=== PATIENT | male | born 1980 | race Two or more races ===

== ENCOUNTER 2018-04-14 13:12 | Inpatient (IN) | payer MEDICAID ==
[2018-04-14] VITALS (9 sets, daily range): BP systolic 121–153; BP diastolic 62–78
[~2018-04-14] VITALS: Ht 182.9 cm; Wt 90.7 kg
[~2018-04-14 13:12] MED LIST: Sterile Water Irrig 1000ml IRRIG ONE
--- NOTE | 2018-04-14 14:29 | Emergency Room Report ---
History of Present Illness General Chief Complaint: Abdominal Pain Source: Patient (Batool Alva) Source: Patient (RYLAN SARABIA M.D) Present Illness HPI 37-year-old male with no medical problems and remote history of a left lung surgery as a child, presents with constant severe right lower quadrant pain that started at 6 AM today, with associated nausea and vomiting, denies any testicular genital pain, denies urinary symptoms, denies any diarrhea or rectal bleeding, reports the pain is severe, not constant and nonradiating with no obvious exacerbating or alleviating factors other than pain worsens with palpation and movement. Denies fevers, denies shortness of breath, denies any obvious triggers to this pain. (RYLAN SARABIA M.D) Allergies: Coded Allergies: No Known Allergies (Unverified , 04/14/18) Patient History Past Medical History: see triage record Reviewed Nursing Documentation: PMH: Agreed; PSxH: Agreed (RYLAN SARABIA M.D) Nursing Documentation-PMH Hx Hypertension: Yes (Batool Alva) Review of Systems All Other Systems: negative except mentioned in HPI (RYLAN SARABIA M.D) Physical Exam Vital Signs Date Time Temp Pulse Resp B/P (MAP) Pulse Ox O2 Delivery O2 Flow Rate FiO2 04/14/18 13:27 97.8 62 18 122/75 95 Room Air 97.9 (Batool Alva) Sp02 EP Interpretation: reviewed, normal General Appearance: no apparent distress, alert, non-toxic Head: normocephalic Eyes: bilateral eye normal inspection, bilateral eye PERRL, bilateral eye EOMI ENT: normal ENT inspection, hearing grossly normal, normal pharynx, no angioedema, normal voice, moist mucus membranes Neck: normal inspection, full range of motion, supple, supple/symm/no masses Respiratory: chest non-tender, lungs clear, normal breath sounds, chest symmetrical, palpation of chest normal Cardiovascular #1: normal peripheral pulses, regular rate, rhythm Cardiovascular #2: 2+ radial (R), 2+ radial (L) Gastrointestinal: normal inspection, soft, no mass, no guarding, no rebound, tenderness - Positive McBurney's point tenderness with localized guarding but no rebound tenderness, and no peritoneal signs otherwise Rectal: deferred Genitourinary: no CVA tenderness Musculoskeletal: back normal, gait/station normal, normal range of motion, non- tender, no calf tenderness Neurologic: alert, responsive, system dispatcher III-XII nml as tested, motor strength/tone normal, sensory intact, speech normal Psychiatric: judgement/insight normal, memory normal, mood/affect normal, no suicidal/homicidal ideation Skin: normal color, no rash, warm/dry, normal turgor Lymphatic: no adenopathy (RYLAN SARABIA M.D) Medical Decision Making Diagnostic Impression: Primary Impression: Appendicitis, acute ER Course Patient with leukocytosis, right lower quadrant tenderness over McBurney's point , pending CT scan at the time of this dictation, presentation very concerning for acute appendicitis, we will initiate antibiotics, patient has been nothing by mouth since 4 AM, he's been given IV fluids, IV antibiotics, and preop labs obtained. Patient also informed that he likely has appendicitis prior to CT scan results. Will admit to Dr. Mireles for admission and Dr. Nieto for OR intervention. (RYLAN SARABIA M.D) CT/MRI/US Diagnostic Results CT/MRI/US Diagnostic Results : Imaging Test Ordered: CT abdomen and pelvis with IV contrast (RYLAN SARABIA M.D) Last Vital Signs Date Time Temp Pulse Resp B/P (MAP) Pulse Ox O2 Delivery O2 Flow Rate FiO2 04/14/18 13:27 97.8 62 18 122/75 95 Room Air 97.9 (Batool Alva) Disposition: ADMITTED INPATIENT Condition: Serious Signed Out To: Dr. Nieto, Dr. Mireles to admit (RYLAN SARABIA M.D) Scripts No Active Prescriptions or Reported Meds Batool Alva Apr 14, 2018 14:29 RYLAN SARABIA M.D Apr 14, 2018 15:23
[2018-04-14] MEDS ORDERED: Morphine Sulfate 4mg/ml Inj IVP ONE (14:30)
[2018-04-14] MEDS ORDERED: Mylanta II UD 30ml ORAL ONE (14:30)
[2018-04-14] MEDS ORDERED: Lidocaine 2% Visc 15ml soln ORAL ONE (14:30)
[2018-04-14] MEDS ORDERED: Isovue-300 100ml vial INJ PRN (14:30)
[2018-04-14 14:39] LABS: HEMATOCRIT 53.9 % (42.0-52.0); HEMOGLOBIN 17.9 G/DL (14.2-18.0); MEAN CORPUSCULAR VOLUME 94 FL (80-99); PLATELET COUNT 260 K/UL (150-450); RED BLOOD COUNT 5.74 M/UL (4.70-6.10); RED CELL DISTRIBUTION WIDTH 12.4 % (11.6-14.8); WHITE BLOOD COUNT 16.4 K/UL (4.8-10.8)
[2018-04-14 14:43] LABS: ANION GAP 8 mmol/L (5-15); BLOOD UREA NITROGEN 13 mg/dL (7-18); CARBON DIOXIDE 26 MMOL/L (21-32); CHLORIDE 107 MMOL/L (98-107); CREATININE 0.9 MG/DL (0.55-1.30); SODIUM 141 MMOL/L (136-145)
[2018-04-14 14:48] LABS: ALANINE AMINOTRANSFERASE 33 U/L (12-78); ALBUMIN 3.8 G/DL (3.4-5.0); ALKALINE PHOSPHATASE 118 U/L (46-116); ASPARTATE AMINO TRANSFERASE 17 U/L (15-37); BILIRUBIN,TOTAL 0.6 MG/DL (0.2-1.0)
[2018-04-14 15:36] LABS: APPEARANCE,URINE CLEAR; BILIRUBIN, URINE NEGATIVE (NEGATIVE); GLUCOSE, URINE (UA) NEGATIVE (NEGATIVE); KETONES,URINE 1+ (NEGATIVE); LEUKOCYTE ESTERASE ,URINE NEGATIVE (NEGATIVE); NITRITE,URINE NEGATIVE (NEGATIVE); PH,URINE 8 (4.5-8.0); PROTEIN,URINE NEGATIVE (NEGATIVE); UROBILINOGEN,URINE NORMAL MG/DL (0.0-1.0)
[2018-04-14 15:42] LABS: COLOR,URINE YELLOW
--- NOTE | 2018-04-14 17:04 | Consultation ---
History of Present Illness General Date patient seen: Apr 14, 2018 Chief Complaint: Abdominal Pain Reason for Consultation: acute appendicitis Present Illness HPI 37M presented with acute onset abdominal pain x 1 day. pain RLQ. associated with n/v. no fever or chills. came to ED for evaluation. +flatus and BM. last meal this AM. Allergies: Coded Allergies: No Known Allergies (Unverified , 04/14/18) Medication History No Active Prescriptions or Reported Meds Patient History History Provided By: Patient, Family Member, Medical Record, PMD Healthcare decision maker Resuscitation status Advanced Directive on File Past Medical/Surgical History Past Medical/Surgical History: (1) Appendicitis, acute Review of Systems All Other Systems: negative except mentioned in HPI Physical Exam General Appearance: no apparent distress Lines, tubes and drains: peripheral HEENT: normocephalic Neck: normal inspection Respiratory/Chest: normal breath sounds Cardiovascular/Chest: normal peripheral pulses Abdomen: soft, guarding, rebound, tender Extremities: normal range of motion Skin Exam: normal pigmentation Neurologic: alert Last 24 Hour Vital Signs Date Time Temp Pulse Resp B/P (MAP) Pulse Ox O2 Delivery O2 Flow Rate FiO2 04/14/18 14:43 97.9 04/14/18 13:37 97.9 84 18 122/75 97 Room Air 97.9 04/14/18 13:27 97.8 62 18 122/75 95 Room Air 97.9 Laboratory Tests Test 04/14/18 13:59 04/14/18 14:10 04/14/18 14:50 Sodium Level 141 MMOL/L (136-145) Potassium Level 4.0 MMOL/L (3.5-5.1) Chloride Level 107 MMOL/L (98-107) Carbon Dioxide Level 26 MMOL/L (21-32) Anion Gap 8 mmol/L (5-15) Blood Urea Nitrogen 13 mg/dL (7-18) Creatinine 0.9 MG/DL (0.55-1.30) Estimat Glomerular Filtration Rate > 60 mL/min (>60) Glucose Level 135 MG/DL (74-106) H Calcium Level 9.0 MG/DL (8.5-10.1) Total Bilirubin 0.6 MG/DL (0.2-1.0) Aspartate Amino Transf (AST/SGOT) 17 U/L (15-37) Alanine Aminotransferase (ALT/SGPT) 33 U/L (12-78) Alkaline Phosphatase 118 U/L (46-116) H Total Protein 7.7 G/DL (6.4-8.2) Albumin 3.8 G/DL (3.4-5.0) Globulin 3.9 g/dL Albumin/Globulin Ratio 1.0 (1.0-2.7) Lipase 127 U/L (73-393) Serum Alcohol < 3 mg/dL White Blood Count 16.4 K/UL (4.8-10.8) H Red Blood Count 5.74 M/UL (4.70-6.10) Hemoglobin 17.9 G/DL (14.2-18.0) Hematocrit 53.9 % (42.0-52.0) H Mean Corpuscular Volume 94 FL (80-99) Mean Corpuscular Hemoglobin 31.3 PG (27.0-31.0) H Mean Corpuscular Hemoglobin Concent 33.3 G/DL (32.0-36.0) Red Cell Distribution Width 12.4 % (11.6-14.8) Platelet Count 260 K/UL (150-450) Mean Platelet Volume 5.7 FL (6.5-10.1) L Neutrophils (%) (Auto) % (45.0-75.0) Lymphocytes (%) (Auto) % (20.0-45.0) Monocytes (%) (Auto) % (1.0-10.0) Eosinophils (%) (Auto) % (0.0-3.0) Basophils (%) (Auto) % (0.0-2.0) Differential Total Cells Counted 100 Neutrophils % (Manual) 82 % (45-75) H Lymphocytes % (Manual) 9 % (20-45) L Monocytes % (Manual) 5 % (1-10) Eosinophils % (Manual) 0 % (0-3) Basophils % (Manual) 0 % (0-2) Band Neutrophils 4 % (0-8) Platelet Estimate Adequate Platelet Morphology Normal Red Blood Cell Morphology Normal Urine Color Yellow Urine Appearance Clear Urine pH 8 (4.5-8.0) Urine Specific [place] 1.015 (1.005-1.035) Urine Protein Negative (NEGATIVE) Urine Glucose (UA) Negative (NEGATIVE) Urine Ketones 1+ (NEGATIVE) H Urine Occult Blood 2+ (NEGATIVE) H Urine Nitrite Negative (NEGATIVE) Urine Bilirubin Negative (NEGATIVE) Urine Urobilinogen Normal MG/DL (0.0-1.0) Urine Leukocyte Esterase Negative (NEGATIVE) Urine RBC 2-4 /HPF (0 - 0) H Urine WBC 0-2 /HPF (0 - 0) Urine Squamous Epithelial Cells None /LPF (NONE/OCC) Urine Bacteria Few /HPF (NONE) Height (Feet): 6 Height (Inches): 0.00 Weight (Pounds): 200 Medications Current Medications Medications (Trade) Dose Ordered Sig/Maximilian Route PRN Reason Start Time Stop Time Status Last Admin Dose Admin Iopamidol (Isovue-300 100ml) 100 ml NOW PRN INJ Radiology Procedure 04/14/18 14:30 Assessment/Plan Problem List: (1) Appendicitis, acute Assessment & Plan: 37M acute appendicitis. afebrile, HD stable, leukocytosis, CT with dilated inflamed appendix no perf. -to OR for lap appy npo iv fluids abx. consent ICD Codes: K35.80 - Unspecified acute appendicitis SNOMED: [id number] Status: stable Joey Nieto Apr 14, 2018 17:04
[2018-04-14] MEDS ORDERED: Midazolam 2mg/2ml Inj ONE (17:05)
[2018-04-14] MEDS ORDERED: fentaNYL 100 mcg/2 mL IV ONE (17:05)
[2018-04-14] MEDS ORDERED: Lidocaine 1% MPF 10mg/ml 5ml ONE (17:07)
[2018-04-14] MEDS ORDERED: Propofol 200mg/20ml IV ONE (17:07)
[2018-04-14] MEDS ORDERED: Morphine Sulfate 10mg/ml Inj ONE (17:07)
[2018-04-14] MEDS ORDERED: Sodium Chloride 10ml vial INJ ONE (17:07)
--- NOTE | 2018-04-14 17:07 | Pre-Procedure Note/Attestation ---
Pre-Procedure Note/Attestation Complete Prior to Procedure Planned Procedure: not applicable Procedure Narrative: lap appy Indications for Procedure Pre-Operative Diagnosis: appendicitis Attestation I attest that I discussed the nature of the procedure; its benefits; risks and complications; and alternatives (and the risks and benefits of such alternatives ), prior to the procedure, with the patient (or the patient's legal account manager sales representative). I attest that, if there was a reasonable possibility of needing a blood transfusion, the patient (or the patient's legal account manager sales representative) was given the [facility] standardized written summary, pursuant to the [place] Blood Safety Act ([place] Health and Safety Code # 1645, as amended). I attest that I re-evaluated the patient just prior to the surgery and that there has been no change in the patient's H&P, except as documented below: Joey Nieto Apr 14, 2018 17:07
--- NOTE | 2018-04-14 17:11 | Diagnostic Imaging Report ---
Clinical Indication: Right lower quadrant pain and nausea Technique: No oral contrast utilized, per emergency room physician request IV administration nonionic contrast. Venous phase spiral acquisition 9 6 obtained through the abdomen and pelvis. Multiplanar reconstructions were generated. Total dose length product 971.09 mGycm. CTDIvol(s) 18.16 mGy. Dose reduction achieved using automated exposure control Comparison: none Findings: The appendix is mildly dilated and there is slight infiltration of the periappendiceal fat. No periappendiceal gas or fluid collections are demonstrated. There are occasional colonic diverticula. No evidence of diverticulitis. No small bowel distention or small bowel wall thickening. No free or loculated intraperitoneal air or fluid. The distal esophagus, stomach, duodenum are unremarkable. The liver, gallbladder, bile ducts, pancreas, spleen, adrenals, kidneys are all unremarkable. No there are somewhat prominent retroperitoneal and right lower quadrant mesenteric root nodes, but no allison adenopathy. No pelvic mass or adenopathy. The included lung bases demonstrate minimal atelectatic changes of the lingula. The bones are unremarkable Impression: Positive for uncomplicated acute appendicitis Colonic diverticulosis. No evidence of diverticulitis Findings reviewed in person previously with Dr. Nieto The CT scanner at [facility] is accredited by the [employer] and the scans are performed using protocols designed to limit radiation exposure to as low as reasonably achievable to attain images of sufficient resolution adequate for diagnostic evaluation.
[2018-04-14] MEDS ORDERED: Zemuron 50mg/5ml Inj IV ONE (17:14)
[2018-04-14] MEDS ORDERED: Bupivacaine 0.25% Inj 30ml INJ ONE (17:24)
[2018-04-14] MEDS ORDERED: EPINEPHrine 1mg/1ml Amp ONE (17:24)
[2018-04-14] MEDS ORDERED: NS Irrig 1000ml IRRIG ONE (17:50)
[2018-04-14] MEDS ORDERED: LR 1000ml 1,000 ML IVLG SCH (17:54)
--- NOTE | 2018-04-14 17:59 | Anethesia Preoperative Eval ---
Anesthesia Pre-op PMH/ROS General Date of Evaluation: Apr 14, 2018 Time of Evaluation: 17:20 Anesthesiologist: Parmjit ASA Score: ASA 2 Mallampati Score Class I : Soft palate, uvula, fauces, pillars visible Class II: Soft palate, uvula, fauces visible Class III: Soft palate, base of uvula visible Class IV: Only hard plate visible Mallampati Classification: Class II Surgeon: Emilia Diagnosis: Aacute appendicitis Surgical Procedure: Lap appy Family History: no anesthesia problems Allergies: Coded Allergies: No Known Allergies (Unverified , 04/14/18) Medications: see eMAR Past Medical History Cardiovascular: Reports: HTN; Denies: CAD, MO, valve dz, arrhythmia, other Pulmonary: Denies: asthma, COPD, LONG, other Gastrointestinal/Genitourinary: Denies: GERD, CRI, ESRD, other Neurologic/Psychiatric: Denies: dementia, CVA, depression/anxiety, TIA, other Endocrine: Denies: DM, hypothyroidism, steroids, other HEENT: Denies: cataract (L), cataract (R), glaucoma, [place] (L), [place] (R), other Hematology/Immune: Denies: anemia, DVT, bleeding disorder, other Musculoskeletal/Integumentary: Denies: OA, RA, DJD, DDD, edema, other PMH Narrative: HTN (untreated) PSxH Narrative: Lung (secondary to trauma in [facility]) Anesthesia Pre-op Phys. Exam Physician Exam Last Vital Signs Date Time Temp Pulse Resp B/P (MAP) Pulse Ox O2 Delivery O2 Flow Rate FiO2 04/14/18 14:43 97.9 04/14/18 13:37 84 18 122/75 97 Room Air Constitutional: NAD Neurologic: CN 2-12 intact Cardiovascular: RRR, no M/R/G Gastrointestinal: S/NT/ND Airway Exam Mallampati Score: Class II MO: full ROM: full Teeth: intact Anesthesia Pre-op A/P Labs Hematology Test 04/14/18 14:10 White Blood Count 16.4 K/UL (4.8-10.8) H Red Blood Count 5.74 M/UL (4.70-6.10) Hemoglobin 17.9 G/DL (14.2-18.0) Hematocrit 53.9 % (42.0-52.0) H Mean Corpuscular Volume 94 FL (80-99) Mean Corpuscular Hemoglobin 31.3 PG (27.0-31.0) H Mean Corpuscular Hemoglobin Concent 33.3 G/DL (32.0-36.0) Red Cell Distribution Width 12.4 % (11.6-14.8) Platelet Count 260 K/UL (150-450) Mean Platelet Volume 5.7 FL (6.5-10.1) L Neutrophils (%) (Auto) % (45.0-75.0) Lymphocytes (%) (Auto) % (20.0-45.0) Monocytes (%) (Auto) % (1.0-10.0) Eosinophils (%) (Auto) % (0.0-3.0) Basophils (%) (Auto) % (0.0-2.0) Differential Total Cells Counted 100 Neutrophils % (Manual) 82 % (45-75) H Lymphocytes % (Manual) 9 % (20-45) L Monocytes % (Manual) 5 % (1-10) Eosinophils % (Manual) 0 % (0-3) Basophils % (Manual) 0 % (0-2) Band Neutrophils 4 % (0-8) Platelet Estimate Adequate Platelet Morphology Normal Red Blood Cell Morphology Normal Chemistry Test 04/14/18 13:59 Sodium Level 141 MMOL/L (136-145) Potassium Level 4.0 MMOL/L (3.5-5.1) Chloride Level 107 MMOL/L (98-107) Carbon Dioxide Level 26 MMOL/L (21-32) Anion Gap 8 mmol/L (5-15) Blood Urea Nitrogen 13 mg/dL (7-18) Creatinine 0.9 MG/DL (0.55-1.30) Estimat Glomerular Filtration Rate > 60 mL/min (>60) Glucose Level 135 MG/DL (74-106) H Calcium Level 9.0 MG/DL (8.5-10.1) Total Bilirubin 0.6 MG/DL (0.2-1.0) Aspartate Amino Transf (AST/SGOT) 17 U/L (15-37) Alanine Aminotransferase (ALT/SGPT) 33 U/L (12-78) Alkaline Phosphatase 118 U/L (46-116) H Total Protein 7.7 G/DL (6.4-8.2) Albumin 3.8 G/DL (3.4-5.0) Globulin 3.9 g/dL Albumin/Globulin Ratio 1.0 (1.0-2.7) Lipase 127 U/L (73-393) Risk Assessment & Plan Assessment: Untreated hypertensive male for lap appy. Plan: GETA Status Change Before Surgery: No Pre-Antibiotics Drug: Ancef Given Within 1 Hr of Incision: Yes Time Given: 17:40 Wesley Parnell MD Apr 14, 2018 17:59
[2018-04-14] MEDS ORDERED: fentaNYL 100 mcg/2 mL IV PRN (18:00)
[2018-04-14] MEDS ORDERED: LORazepam Inj 2mg/ml 1ml IV PRN (18:00)
[2018-04-14] MEDS ORDERED: Meperidine 50mg/ml Inj(FOR RIGORS ONLY) IVP PRN (18:00)
[2018-04-14] MEDS ORDERED: DiphenhydrAMINE 50mg/ml Inj IVP PRN (18:00)
--- NOTE | 2018-04-14 18:00 | Immediate Post-Op Evaluation ---
Immediate Post-Op Evalulation Immediate Post-Op Evalulation Procedure: Lap appy Date of Evaluation: Apr 14, 2018 Time of Evaluation: 18:25 IV Fluids: 600 Blood Pressure Systolic: 153 Blood Pressure Diastolic: 72 Pulse Rate: 72 Respiratory Rate: 12 O2 Sat by Pulse Oximetry: 100 Temperature (Fahrenheit): 98.6 Pain Score (1-10): 0 Nausea: No Vomiting: No Complications No complication Patient Status: awake, patent, extubated, none Hydration Status: adequate Drug: Ancef Given Within 1 Hr of Incision: Yes Time Given: 17:40 Wesley Parnell MD Apr 14, 2018 18:00
--- NOTE | 2018-04-14 18:19 | Brief Operative Note ---
Immediate Post Operative Note Operative Note Pre-op Diagnosis: appendicitis Procedure: laparoscopic appendectomy Post-op Diagnosis: same as pre-op Surgeon: yln Anesthesiologist: shayy Anesthesia: general Specimen: yes Complications: none Condition: stable Fluids: see records Estimated Blood Loss: minimal Drains: none Implant(s) used?: No Joey Nieto Apr 14, 2018 18:18
[2018-04-14] MEDS ORDERED: Ketorolac 30mg Inj IV PRN (18:30)
[2018-04-14] MEDS ORDERED: Norco 5mg/325mg tab ORAL PRN (18:30)
[2018-04-14] MEDS ORDERED: Milk of Magnesia 30ml Ud ORAL PRN (18:30)
[2018-04-14] MEDS ORDERED: Morphine Sulfate 4mg/ml Inj IVP PRN ×2 (18:30→20:30)
--- NOTE | 2018-04-14 19:45 | Operative Note - Dictated ---
DATE OF OPERATION: 04/14/2018 PREOPERATIVE DIAGNOSIS: Acute appendicitis. POSTOPERATIVE DIAGNOSIS: Acute appendicitis. OPERATION PERFORMED: Acute laparoscopic appendectomy. ATTENDING SURGEON: Joey Nieto M.D. RAIL DIRECTOR: None. ANESTHESIOLOGIST: Wesley Parnell M.D. ANESTHESIA: General TRAINING AND QUALITY MANAGER. ESTIMATED BLOOD LOSS: Minimal. IV FLUIDS: Please see anesthesia records. COMPLICATIONS: None. SPECIMEN: Appendix. DRAINS: None. COUNTS: Sponge and needle count correct x2. WOUND CLASSIFICATION: Class III. INDICATIONS FOR PROCEDURE: This is a 37-year-old male, who presented to emergency department complaining of worsening right lower quadrant abdominal pain x1 day with acute onset. The patient had a leukocytosis and CT scan consistent with acute non-perforated uncomplicated appendicitis. On examination, the patient had focal right lower quadrant tenderness with rebound and guarding. Surgery was indicated and recommended. Risks, benefits, and alternatives were discussed with the patient in detail. Consented for surgery. OPERATIVE NOTE: The patient was taken to the operating room and placed on operative table in supine position with bilateral arms out. All bony prominences were well padded. SCDs were placed. Antibiotics were given one hour prior to cut time. Preoperative time-out was taken identifying the patient, procedure, operative staff, and surgical staff. General anesthesia was induced and the patient was intubated. The abdomen was clipped, prepped, and draped in standard surgical fashion. An infraumbilical incision was made in the skin using a fresh #11 scalpel, which was taken down to the fascia, which was elevated and incised. Entry into the abdomen was identified using open Neisha technique without complication. A 12 mm Neisha trocar was then inserted and the abdomen was insufflated to 12 to 15 mmHg. The patient tolerated the insufflation well. Secondary trocars were then placed under direct visualization beginning with a 12 mm trocar in the left lower quadrant followed by a 5 mm suprapubic trocar. Both were inserted without complication. Local anesthetic was used in all skin incisions and port entry sites throughout the procedure. Laparoscopic graspers were used to identify the cecum and the teniae in the colon down to the confluence, at which point the base of the appendix was identified. The appendix was very dilated and distended with periappendiceal fat stranding, but no perforation or other abnormalities. A window was made at the base of the appendix. Following this, a laparoscopic linear stapler was used to divide the base of the appendix without complication. Following this, the laparoscopic linear stapler was then used to divide the mesoappendix in a similar fashion. The appendix was placed in endoscopic retrieval bag and removed from the abdomen. The base of the appendix staple line and the mesentery staple line were identified and noted to be hemostatic and secured. Minimal irrigation was then done in the right lower quadrant and suction. At this time, secondary trocars were removed under direct visualization. The appendix was removed using the umbilical port site, and abdomen was allowed to desufflate. The fascial incisions were closed using #0 Vicryl [id number] suture. Following this, skin incisions were closed using 4-0 Monocryl subcuticular sutures. Mastisol and Steri-Strips followed by dressings were applied. The patient tolerated the procedure well, was extubated, and taken to postanesthetic care unit in stable condition. Joey Nieto M.D. DR: JASON JOB#: [id number] CC:
[2018-04-14] MEDS: D5 1/2NS w/KCl 20mEq 1,000 ML IV SCH (21:51)
[2018-04-14] MEDS: Ampicillin/Sulbactam Sod 3 GM in NS 110 ML IVPB SCH (21:51)
[2018-04-15] MEDS: HYDROcodone/Acetamin 10/325 tab ORAL PRN ×4 (00:05→12:20)
[2018-04-15] MEDS: Ampicillin/Sulbactam Sod 3 GM in NS 110 ML IVPB SCH (06:23)
[2018-04-15] MEDS: D5 1/2NS w/KCl 20mEq 1,000 ML IV SCH (06:26)
[2018-04-15 06:44] LABS: BASOPHILS % (AUTO) 0.7 % (0.0-2.0); HEMATOCRIT 44.3 % (42.0-52.0); HEMOGLOBIN 15.8 G/DL (14.2-18.0); LYMPHOCYTES % (AUTO) 17.3 % (20.0-45.0); MEAN CORPUSCULAR VOLUME 93 FL (80-99); MONOCYTES % (AUTO) 6.8 % (1.0-10.0); NEUTROPHILS % (AUTO) 74.2 % (45.0-75.0); PLATELET COUNT 202 K/UL (150-450); RED BLOOD COUNT 4.77 M/UL (4.70-6.10); RED CELL DISTRIBUTION WIDTH 12.2 % (11.6-14.8); WHITE BLOOD COUNT 13.3 K/UL (4.8-10.8)
[2018-04-15 08:00] LABS: ANION GAP 4 mmol/L (5-15); BLOOD UREA NITROGEN 12 mg/dL (7-18); CALCIUM 8.3 MG/DL (8.5-10.1); CARBON DIOXIDE 28 MMOL/L (21-32); CHLORIDE 105 MMOL/L (98-107); CREATININE 0.8 MG/DL (0.55-1.30); SODIUM 137 MMOL/L (136-145)
[2018-04-15 08:05] VITALS: BP 100/67
[2018-04-15 08:24] VITALS: BP 100/67
--- NOTE | 2018-04-15 08:24 | 48 Hour Post Anesthesia Eval ---
Post Anesthesia Evaluation Procedure: Lap appy Date of Evaluation: Apr 15, 2018 Time of Evaluation: 10:15 Blood Pressure Systolic: 100 0: 67 Pulse Rate: 77 Respiratory Rate: 20 Temperature (Fahrenheit): 97.9 O2 Sat by Pulse Oximetry: 97 Airway: patent Nausea: No Vomiting: No Pain Intensity: 3 Hydration Status: adequate Cardiopulmonary Status: Stable Mental Status/LOC: patient returned to baseline Follow-up Care/Observations: As per surgery Post-Anesthesia Complications: No anesthetic complication Follow-up care needed: N/A Wesley Parnell MD Apr 15, 2018 08:24
[2018-04-15] MEDS ORDERED: Docusate 100mg cap ORAL SCH (09:00)
[2018-04-15] MEDS ORDERED: NORCO 5-325 TA1 EACH ORAL (12:07)
[2018-04-15] MEDS ORDERED: COLACE100 MG ORAL (12:07)
--- NOTE | 2018-04-15 12:21 | General Progress Note ---
Progress Note Progress Note Surgery: doing well. no acute events. pain improved now just incisional pain. no n/v/f/ c. tolerating diet. ambulatory. afebrile, HD stable, labs improved. leukocytosis resolving. POD #1 s/p lap appy for acute appendicitis. stable. recovering -diet as tolerated -activity as tolerated -Rx writte -okay to d/c -follow up in 1-2 weeks -post op instructions given to patient. Joey Nieto Apr 15, 2018 12:21
[2018-04-15] MEDS ORDERED: Ampicillin/Sulbactam Sod 3 GM in D5W 110 ML IVPB SCH (14:00)
--- NOTE | 2018-04-15 16:30 | Consultation ---
DATE OF CONSULTATION: 04/15/2018 INFECTIOUS DISEASE CONSULTATION CONSULTING PHYSICIAN: Jian Arndt M.D. REQUESTING PHYSICIAN: Villa Mireles M.D. PRIMARY ATTENDING PHYSICIAN: Joey Nieto M.D. REASON FOR CONSULT: Acute appendicitis. HISTORY OF PRESENT ILLNESS: The patient is a 37-year-old male, admitted yesterday with 1-day history of right lower quadrant abdominal pain. The patient did not have any other symptoms, have leukocytosis at the time of admission. CT scan of the abdomen and pelvis showed acute appendicitis. Started IV antibiotic Unasyn and went to OR and had laparoscopic appendectomy. ALLERGIES: No known drug allergies. MEDICATIONS: Getting Unasyn, Colace, temazepam, morphine, Toradol, Tylenol, [place], Zofran, magnesium hydroxide, Mylanta and diphenhydramine. SOCIAL HISTORY: Originally from [facility]. Lives in [facility] for one and half years. 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 Smokes cigarettes. Denies drug abuse. REVIEW OF SYSTEMS: He has some dry coughing and some abdominal pain in surgical site, but tolerates p.o. diet. PHYSICAL EXAMINATION: GENERAL APPEARANCE: No acute distress. VITAL SIGNS: Temperature 97.9 degrees, pulse 77, and blood pressure 100/67. HEAD AND NECK: [place] conjunctivae. HEART: S1 and S2. Regular. ABDOMEN: Soft. Mildly tender. Bowel sounds present. EXTREMITIES: No edema. LABORATORY AND DIAGNOSTIC DATA: WBC is 13.3, coming down from 16.4; hemoglobin 15.8; hematocrit 44.3, and platelets 202. Sodium 137, potassium 4, chloride 105, bicarbonate 28, BUN 12, creatinine 0.8, and glucose 109. CT scan of the abdomen and pelvis showed acute appendicitis and diverticulosis without diverticulitis. IMPRESSION: 1. Acute appendicitis, status post laparoscopic appendectomy. 2. Colonic diverticulosis without diverticulitis. RECOMMENDATION: Continue antibiotic in hospital. At the end of my exam, I thank Dr. Nieto and Dr. Mireles for involving me in the care of this patient. Jian Arndt M.D. DR: AUDREY JOB#: [id number] CC:
--- NOTE | 2018-04-16 04:30 | History and Physical Report ---
DATE OF ADMISSION: 04/14/2018 HISTORY OF PRESENT ILLNESS: The patient came in for abdominal pain. The patient had one day of abdominal pain. Denies nausea, vomiting, diarrhea, fever, or chills. Denies shortness of breath. Denies cough. He was found to have appendicitis on examination. He was taken to the operating room and had emergent appendix removal by Dr. Nieto. The patient denies any other medical problems. PAST MEDICAL HISTORY: None. PAST SURGICAL HISTORY: None. MEDICATIONS: None. FAMILY HISTORY: Noncontributory. SOCIAL HISTORY: Smokes. No history of drug or alcohol abuse. REVIEW OF SYSTEMS: HEENT: Denies headaches. RESPIRATORY: Denies shortness of breath. Denies cough. CARDIOVASCULAR: Denies chest pain. GASTROINTESTINAL: Denies nausea, vomiting, or diarrhea. He does have abdominal pain. EXTREMITIES: Denies pain in the lower extremities. CENTRAL NERVOUS SYSTEM: No change in vision or speech pattern. PHYSICAL EXAMINATION: VITAL SIGNS: Temperature 97.8, pulse 88, and blood pressure 112/87. HEENT: PERRLA. NECK: Supple. No lymphadenopathy. CHEST: Clear to auscultation. GASTROINTESTINAL: Tender in the right lower quadrant. Abdomen is soft. Positive bowel sounds. No organomegaly. EXTREMITIES: No edema. Reflexes are equal on both sides. Moves all four extremities. NEUROLOGIC: Reflexes equal on both sides. Sensory intact to light touch. ASSESSMENT AND PLAN: Appendicitis, status post appendix removal by Dr. Nieto. ID and GI was also consulted. The patient will be discharged after the . Villa Mireles M.D. DR: JENNI JOB#: [id number] CC:
--- NOTE | 2018-04-16 11:44 | Discharge Summary ---
Discharge Summary Discharge Summary _ DATE OF ADMISSION: 04/14/2018 DATE OF DISCHARGE: 04/15/2018 REASON FOR ADMISSION: 37 years old male without significant past medical history, presented to emergency department with severe right lower quadrant abdominal pain , which started earlier in the morning. Pain was associated with nausea and vomiting. He denied any testicular or genital pain, he denied urinary symptoms ,he denied diarrhea or rectal bleeding. He reported pain being severe, but not constant and nonradiating. Pain was worse with palpation and movement. He denied fever or shortness of breath , no chest pain. Upon evaluation ,vital signs were stable, WBC 16.4 ,stable hemoglobin and hematocrit, serum alcohol level less than 3. CT of the abdomen and pelvis revealed uncomplicated acute appendicitis. CT scan also showed colonic diverticulosis without evidence of diverticulitis. Surgery consult was requested . Patient was admitted for surgical intervention with diagnosis of acute appendicitis. CONSULTANTS: ID [facility]: Patient admitted and started on IV fluids. Patient was kept nothing by mouth . Surgeon seen and evaluated patient and scheduled patient for acute laparoscopic appendectomy. Patient subsequently undergone on the same day, on 04/14 , acute laparoscopic appendectomy. Patient was on IV antibiotics while in the hospital. ID specialist closely followed. Diet slowly started as tolerated. Antiemetic were on board as needed , patient was able to tolerate diet. Pain management was addressed , and pain was controlled. Bowel regimen instituted. Patient was able to void freely. Patient was hemodynamically stable. Leukocytosis down to 13.3 the next day. According to surgeon patient was cleared for discharge home. Patient was afebrile, ambulatory, tolerating diet ,and hemodynamically stable. Prescription provided for analgesic and stool softener. Discharge instructions provided regarding activity as tolerated, diet as tolerated and follow-up with the surgeon in 1-2 weeks Due to rapid and unexpected improvement in patient's condition, the patient was discharged in one day. FINAL DIAGNOSES: Acute appendicitis Status post laparoscopic appendectomy Colonic diverticulosis without evidence of diverticulitis DISCHARGE MEDICATIONS: See Medication Reconciliation list. DISCHARGE INSTRUCTIONS: I have been assigned to dictate discharge summary for this account. I was not involved in the patient's management. Shanta Carrasco NP Apr 16, 2018 11:44
== END 2018-04-15 12:30 | disposition home or self-care (01) | DRG 225 ==
LOC: EMR 14:30 → EDBEDREQ 16:50 → EDBEDREQTM 16:50 → EDBEDREQSVC 16:50 → SUR 16:52 → 3E 20:49
PROC: 0DTJ4ZZ Resection of Appendix, Percutaneous Endoscopic Approach (ICD-10-PCS; principal; 2018-04-14 17:00)
DX: K35.80 Unspecified acute appendicitis (principal); F17.200 Nicotine dependence, unspecified, uncomplicated; K57.90 Diverticulosis of intestine, part unspecified, without perforation or abscess without bleeding
CPT/HCPCS: 36415; 74177; 80048; 80053; 80329; 81003; 83690; 85007; 85025; 94003; 94150; 99285; J2250; J2405